=== PATIENT | female | born 1945 | race Asian ===

== ENCOUNTER → 2018-08-18 | Day surgery (SDC) | payer MEDICAID, OTHER ==
[~2018-08-18] VITALS: Ht 152.4 cm; Wt 60.9 kg
[~2018-08-18] MED LIST: ACET-66 PO; ALBU8HFA PO; ALLO300 PO; ALPR0.5T8 PO; ASPI81 PO; BALANCED SALT 15 ML OPHTHALMIC IRRIG.SOLN OS ONE; CAPS1ADH9 TD; CLON-570 PO; CYCL05OE OU; CYCLOPENTOLATE HCL 1% 2 ML OPHTHALMIC SOLUTION ONE; FentaNYL CITRATE-PF 100 MCG/2 ML VIAL IVP ONE; HYALURONATE SOD/CHONDROITIN SOD 0.5 ML VIAL IO ONE; HYALURONATE SODIUM 12 MG/ML 0.8 ML SYRINGE IO ONE; KETOROLAC TROMETHAMINE 0.5% 5 ML OPHTHALMIC SOLUTION ONE; LIDOCAINE/PF 1% 2 ML VIAL IM ONE; MIDAZOLAM HCL 2 MG/2 ML VIAL IVP ONE; MOXIFLOXACIN HCL 0.5% 3 ML OPHTHALMIC SOLUTION ONE; OLOP2.5D OU; OS500 PO; PANT40TA25 PO; PHENYLEPHRINE HCL 2.5% 2 ML OPHTHALMIC SOLUTION ONE; POVIDONE-IODINE 10% 15 ML SOLUTION UD TP ONE; PREG50 PO; PrednisoLONE ACETATE 1% 5 ML OPHTHALMIC SUSPENSION OS ONE; RINGERS SOLUTION,LACTATED 500 ML IV ONE; SIMV-260 PO; SODIUM CHLORIDE 0.9% 500 ML IV ONE; TETRACAINE HCL VISCOUS 0.5% 0.6 ML OPHTHALMIC SOLUTION OS ONE; TETRACAINE HCL/PF 0.5% 4 ML OPHTHALMIC SOLUTION OD ONE; TETRACAINE HCL/PF 0.5% 4 ML OPHTHALMIC SOLUTION ONE; TROPICAMIDE 1% 2 ML OPHTHALMIC SOLUTION ONE; VITAD1000 PO
[2018-08-18] MEDS: PHENYLEPHRINE HCL 2.5% 2 ML OPHTHALMIC SOLUTION OD SCH ×3 (08:45→09:02)
[2018-08-18] MEDS: MOXIFLOXACIN HCL 0.5% 3 ML OPHTHALMIC SOLUTION OD SCH ×3 (08:45→09:02)
[2018-08-18] MEDS: CYCLOPENTOLATE HCL 1% 2 ML OPHTHALMIC SOLUTION OD SCH ×3 (08:45→09:02)
[2018-08-18] MEDS: TROPICAMIDE 1% 2 ML OPHTHALMIC SOLUTION OD SCH ×3 (08:45→09:02)
[2018-08-18] MEDS: KETOROLAC TROMETHAMINE 0.5% 5 ML OPHTHALMIC SOLUTION OD SCH ×3 (10:15→10:27)
== END | disposition home or self-care (01) ==
LOC: SURGERY 07:24
PROVIDERS: ATTEND Ophthalmology Glaucoma Specialist
DX: E11.36 Type 2 diabetes mellitus with diabetic cataract (principal); H25.11 Age-related nuclear cataract, right eye; M19.90 Unspecified osteoarthritis, unspecified site; G43.909 Migraine, unspecified, not intractable, without status migrainosus; J45.998 Other asthma; F41.8 Other specified anxiety disorders; F32.9 Major depressive disorder, single episode, unspecified; E11.22 Type 2 diabetes mellitus with diabetic chronic kidney disease; I12.9 Hypertensive chronic kidney disease with stage 1 through stage 4 chronic kidney disease, or unspecified chronic kidney disease; N18.2 Chronic kidney disease, stage 2 (mild); M79.7 Fibromyalgia; M06.9 Rheumatoid arthritis, unspecified; G89.29 Other chronic pain; I44.4 Left anterior fascicular block; E78.00 Pure hypercholesterolemia, unspecified; E55.9 Vitamin D deficiency, unspecified; J32.9 Chronic sinusitis, unspecified; Z87.19 Personal history of other diseases of the digestive system; Z90.721 Acquired absence of ovaries, unilateral; Z79.891 Long term (current) use of opiate analgesic; Z79.82 Long term (current) use of aspirin; Z91.018 Allergy to other foods; Z79.2 Long term (current) use of antibiotics; Z91.040 Latex allergy status; Z90.710 Acquired absence of both cervix and uterus; Z98.890 Other specified postprocedural states; Z88.8 Allergy status to other drugs, medicaments and biological substances; Z79.899 Other long term (current) drug therapy
CPT/HCPCS: 66982; 93005; C1780; J2250; J3010; J3490 ×2; J7040; J7120